=== PATIENT | male | born 1980 | race Caucasian/White ===

== ENCOUNTER 2019-02-27 14:43 | Emergency (ER) | payer SELFPAY ==
[2019-02-27] MEDS ORDERED: dexAMETHasone 10 MG/ML VIAL ONE (15:56)
[2019-02-27] MEDS ORDERED: KETOROLAC 30 MG/ML INJ ONE (15:57)
[2019-02-27] MEDS ORDERED: DIAZEPAM 10 MG/2 ML INJ SYRINGE ONE (15:57)
--- NOTE | 2019-02-27 16:30 | RAD REPORT ---
EXAM DESCRIPTION: CT - Spine Lumbar Wo Con - 02/27/2019 4:13 pm CLINICAL HISTORY: Back pain, right lower extremity radiculopathy COMPARISON: None. TECHNIQUE: Thin section axial imaging of the lumbar spine was performed. Sagittal and coronal recon struction images were generated and reviewed. All CT scans are performed using dose optimization technique as appropriate and may include automated exposure control or mA/KV adjustment according to patient size. FINDINGS: Lumbar bodies are normal in height and normal in alignment. No lytic, sclerotic or expansi le destructive process. No paraspinal soft tissue mass. Central canal detail is inherently limited. L1-2 level shows minimal disc bulge. No canal or foramen stenosis. Facet degenerative change present. L2-3 level shows mild broad-based bulging of disc material. No canal or foramen stenosis. Facet degen erative changes mild. L3-4 level shows mild circumferential bulging of disc material. No canal or foramen stenosis. Mild fa cet degenerative change. L4-5 level shows large broad-based protrusion of disc material across the central canal and into each exit foramen. The protruding disc is calcified. No central spinal stenosis. Mild bilateral foraminal stenosis changes are present from bulging disc material and facet degenerative change. L5-S1 large disc herniation. Disc herniation is calcified. There is no central spinal stenosis. Mild mass effect on the bilateral S1 nerve root seen. Foraminal stenosis is present from bulging disc mate rial and facet hypertrophy. IMPRESSION: L5-S1 large midline disc herniation. The disc is calcified indicating chronicity. No mac tral spinal stenosis. Prominent protruding disc in the midline with calcification also indicating long-standing. No central spinal stenosis. L4-5 and L5-S1 foraminal encroachment changes from disc bulge, endplate spurring and facet degenerati ve change.
[2019-02-27 16:33] LABS: Absolute Lymphocytes (CBC) 3.2 K/uL (0.7-4.9); Hematocrit 49.1 % (39.6-49.0); Lymphocytes % 27.4 % (15.3-44.8); RBC Red Blood Cell Count 5.62 M/uL (4.33-5.43)
[2019-02-27 16:45] LABS: ALT/SGPT 23 U/L (12-78); AST/SGOT 14 U/L (15-37); Albumin 3.6 g/dL (3.4-5.0); Alkaline Phosphatase 82 U/L (45-117); BUN Blood Urea Nitrogen 14 mg/dL (7-18); Bicarbonate 29 mmol/L (21-32); Bilirubin Direct 0.2 mg/dL (0-0.2); Bilirubin Total 0.9 mg/dL (0.2-1.0); Glucose Level 94 mg/dL (74-106); Potassium 3.8 mmol/L (3.5-5.1); Protein, Total 7.4 g/dL (6.4-8.2); Sodium Level 139 mmol/L (136-145)
[2019-02-27] MEDS ORDERED: FENTANYL CITR 100 MCG/2 ML ONE (17:11)
--- NOTE | 2019-02-27 18:03 | EDPHYS ---
Physician Documentation [facility] Name: Dar Frost Age: 38 yrs Sex: Male : 1980 Arrival Date: 02/27/2019 Time: 14:47 Bed 18 Private MD: ED Physician Jayant Javed HPI: 02/27 18:37 This 38 yrs old Male presents to ER via Wheelchair with complaints of Back wa Pain, Leg Pain. 18:38 The patient presents with pain that is acute, with no known mechanism of injury. The wa symptoms are located in the low back, right. Onset: The symptoms/episode began/occurred 3 day(s) ago. The pain radiates to the right leg. Associated signs and symptoms: Pertinent positives: numbness, tingling, Pertinent negatives: abdominal pain, dysuria, hematuria, urinary retention, weakness. The problem was sustained from unknown cause. Modifying factors: The patient symptoms are alleviated by nothing, the patient symptoms are aggravated by movement, walking. Severity of symptoms: At their worst the symptoms were severe, in the emergency department the symptoms are unchanged. The patient has not experienced similar symptoms in the past. The patient has not recently seen a physician. denies incontinence. denies inability ambulating. Historical: - Allergies: 14:51 No Known Allergies; hb - Home Meds: 14:51 losartan oral oral [Active]; hb - PMHx: 14:51 Hypertension; hb - PSHx: 14:51 None; hb - Immunization history:: Adult Immunizations up to date. - Social history:: Smoking status: Patient uses tobacco products, smokes one pack cigarettes per day. - Ebola Screening: : No symptoms or risks identified at this time. - Family history:: not pertinent. - Hospitalizations: : No recent hospitalization is reported. ROS: 18:40 Constitutional: Negative for fever, chills, and weight loss, Eyes: Negative for injury, wa pain, redness, and discharge, ENT: Negative for injury, pain, and discharge, Neck: Negative for injury, pain, and swelling, Cardiovascular: Negative for chest pain, palpitations, and edema, Respiratory: Negative for shortness of breath, cough, wheezing, and pleuritic chest pain, Abdomen/GI: Negative for abdominal pain, nausea, vomiting, diarrhea, and constipation, : Negative for injury, bleeding, discharge, and swelling, MS/Extremity: Negative for injury and deformity, Skin: Negative for injury, rash, and discoloration, Psych: Negative for depression, anxiety, suicide ideation, homicidal ideation, and hallucinations. 18:40 All other systems are negative. 18:41 Back: Positive for pain at rest, pain with movement, radiated pain, of the right low wa back and right gluteus marion. Exam: 18:41 Constitutional: This is a well developed, well nourished patient who is awake, alert, wa and in no acute distress. Head/Face: Normocephalic, atraumatic. Eyes: Pupils equal round and reactive to light, extra-ocular motions intact. Lids and lashes normal. Conjunctiva and sclera are non-icteric and not injected. Cornea within normal limits. Periorbital areas with no swelling, redness, or edema. ENT: Nares patent. No nasal discharge, no septal abnormalities noted. Tympanic membranes are normal and external auditory canals are clear. Oropharynx with no redness, swelling, or masses, exudates, or evidence of obstruction, uvula midline. Mucous membranes moist. Neck: Trachea midline, no thyromegaly or masses palpated, and no cervical lymphadenopathy. Supple, full range of motion without nuchal rigidity, or vertebral point tenderness. No Meningismus. Chest/axilla: Normal chest wall appearance and motion. Nontender with no deformity. No lesions are appreciated. Cardiovascular: Regular rate and rhythm with a normal S1 and S2. No gallops, murmurs, or rubs. Normal PMI, no JVD. No pulse deficits. Respiratory: Lungs have equal breath sounds bilaterally, clear to auscultation and percussion. No rales, rhonchi or wheezes noted. No increased work of breathing, no retractions or nasal flaring. Abdomen/GI: Soft, non-tender, with normal bowel sounds. No distension or tympany. No guarding or rebound. No evidence of tenderness throughout. Male : Normal genitalia with no discharge or lesions. Skin: Warm, dry with normal turgor. Normal color with no rashes, no lesions, and no evidence of cellulitis. MS/ Extremity: Pulses equal, no cyanosis. Neurovascular intact. Full, normal range of motion. 18:41 Back: pain, that is moderate, of the right low back and right gluteus marion, CVA tenderness, is absent, muscle spasm, is not present, Straight leg raises: partially positive on the R?. 18:41 Neuro: RLE numbness, tingling. Vital Signs: 14:51 BP 189 / 119; Pulse 98; Resp 20; Temp 97.9; Pulse Ox 100% on R/A; Weight 136.08 kg; hb Height 6 ft. 3 in. (190.50 cm); Pain 10/10; 16:40 BP 158 / 111; Pulse 65; Resp 17 S; Pulse Ox 95% on R/A; ca1 17:32 BP 145 / 91; Pulse 74; Resp 16 S; Pulse Ox 100% on R/A; ca1 18:10 BP 161 / 89; Pulse 81; Resp 17 S; Pulse Ox 100% on R/A; Pain 5/10; ca1 14:51 Body Mass Index 37.50 (136.08 kg, 190.50 cm) hb MDM: 14:55 Patient medically screened. wa 18:45 Differential diagnosis: Ligament Injury sprain, sciatica. lumbar canal stenosis, disk wa herniation, nerve root impingement. Data reviewed: vital signs, nurses notes, lab test result(s), radiologic studies. 18:47 Test interpretation: by ED physician or midlevel provider: lumbar spine CT: multi-level wa disk herniation. no significant canal stenosis. 18:49 Test interpretation: by ED physician or midlevel provider: labs noted essentially wa within nml limits. Response to treatment: the patient's symptoms have markedly improved after treatment. ED course: received meds for pain in ED with significant relief. d/c'd with close f/u for MRI and further eval. advised return for worsening concerns. 02/27 15:57 Order name: Basic Metabolic Panel; Complete Time: 17:08 dc 02/27 15:57 Order name: CBC with Diff; Complete Time: 17:09 dc 02/27 15:54 Order name: CT Lumbar Spine Wo Con; Complete Time: 17:09 dc 02/27 15:57 Order name: Hepatic Function; Complete Time: 17: dc 02/27 15:54 Order name: IV Start; Complete Time: 16:12 dc 02/27 15:57 Order name: Labs collected and sent; Complete Time: 16:23 wa Administered Medications: 16:00 Drug: Decadron - Dexamethasone 10 mg Route: IVP; Site: right antecubital; ca1 16:23 Follow up: Response: No adverse reaction; Pain is decreased ca1 16:02 Drug: TORadol 30 mg Route: IVP; Site: right antecubital; ca1 16:23 Follow up: Response: No adverse reaction; Pain is decreased ca1 16:05 Drug: Valium 5 mg Route: IVP; Site: right antecubital; ca1 16:23 Follow up: Response: No adverse reaction; Pain is decreased ca1 17:15 Drug: fentaNYL (PF) 100 mcg {Note: RASS - 0.} Route: IVP; Site: right antecubital; ca1 17:45 Follow up: Response: No adverse reaction; Pain is decreased; RASS: Alert and Calm (0) ca1 Disposition: 02/27/19 18:01 Discharged to Home. Impression: acute right lower back pain with radiculopathy. - Condition is Stable. - Prescriptions for Valium 5 mg Oral Tablet - take 1 tablet by ORAL route At bedtime As needed; 5 tablet. Prednisone 20 mg Oral Tablet - take 2 tablet by ORAL route once daily for 5 days; 10 tablet. Ibuprofen 600 mg Oral Tablet - take 1 tablet by ORAL route every 6 hours As needed take with food; 30 tablet. - Medication Reconciliation Form, Thank You Letter, Antibiotic Education, Prescription Opioid Use, Work release form form. - Follow up: Amadeo Nation MD; When: 1 - 2 days. - Problem is new. - Symptoms have improved. - Notes: follow up with the bone doctor as discussed. you will need an MRI for further evaluation of your pain. return for any rapidly worsening concerns you may have Signatures: Dispatcher [employer] EDJada Mejia RN RN Jayant Javed MD MD wa Acob, Cheryl, RN RN ca1 Corrections: (The following items were deleted from the chart) 18:19 18:01 02/27/2019 18:01 Discharged to Home. Impression: acute right lower back pain with ca1 radiculopathy. Condition is Stable. Forms are Medication Reconciliation Form, Thank You Letter, Antibiotic Education, Prescription Opioid Use. Follow up: Amadeo Nation; When: 1 - 2 days. Problem is new. Symptoms have improved. jay
--- NOTE | 2019-02-27 18:03 | ER ---
Nurse's Notes [facility] Name: Dar Frost Age: 38 yrs Sex: Male : 1980 Arrival Date: 02/27/2019 Time: 14:47 Bed 18 Private MD: Diagnosis: acute right lower back pain with radiculopathy Presentation: 02/27 14:48 Presenting complaint: Right low back pain that radiates to right leg x 3 days. hb Transition of care: patient was not received from another setting of care. Onset of symptoms was February 24, 2019. Risk Assessment: Do you want to hurt yourself or someone else? Patient reports no desire to harm self or others. Care prior to arrival: None. 14:48 Method Of Arrival: Wheelchair hb 14:48 Acuity: SAVANA 3 hb 15:21 Initial Sepsis Screen: Does the patient meet any 2 criteria? No. Patient's initial ca1 sepsis screen is negative. Does the patient have a suspected source of infection? No. Patient's initial sepsis screen is negative. Historical: - Allergies: 14:51 No Known Allergies; hb - Home Meds: 14:51 losartan oral oral [Active]; hb - PMHx: 14:51 Hypertension; hb - PSHx: 14:51 None; hb - Immunization history:: Adult Immunizations up to date. - Social history:: Smoking status: Patient uses tobacco products, smokes one pack cigarettes per day. - Ebola Screening: : No symptoms or risks identified at this time. - Family history:: not pertinent. - Hospitalizations: : No recent hospitalization is reported. Screenin:18 Abuse screen: Denies threats or abuse. Denies injuries from another. Nutritional ca1 screening: No deficits noted. Tuberculosis screening: No symptoms or risk factors identified. Fall Risk None identified. Assessment: 15:18 General: Appears in no apparent distress. uncomfortable, Behavior is calm, cooperative, ca1 appropriate for age. Pain: Complains of pain in right lower back and right gluteus marion Pain radiates to right leg Pain currently is 10 out of 10 on a pain scale. Quality of pain is described as sharp, shooting, Pain began 2-3 days ago. Is continuous, Aggravated by weight bearing. Neuro: Level of Consciousness is awake, alert, obeys commands, Oriented to person, place, time, situation, Appropriate for age. Cardiovascular: Heart tones S1 S2 present Capillary refill < 3 seconds Patient's skin is warm and dry. Cardiovascular: Pulses are all present. Cardiovascular: Edema is absent. Respiratory: Airway is patent Respiratory effort is even, unlabored, Respiratory pattern is regular, symmetrical. GI: Abdomen is round non-distended, Bowel sounds present X 4 quads. Abd is soft and non tender X 4 quads. : No deficits noted. No signs and/or symptoms were reported regarding the genitourinary system. EENT: No deficits noted. No signs and/or symptoms were reported regarding the EENT system. Derm: Skin is intact, is healthy with good turgor, Skin is pink, warm \T\ dry. Musculoskeletal: Circulation, motion, and sensation intact. Capillary refill < 3 seconds, Range of motion: intact in all extremities. 16:05 Reassessment: Patient appears in no apparent distress at this time. Patient and/or ca1 family updated on plan of care and expected duration. Pain level reassessed. Patient is alert, oriented x 3, equal unlabored respirations, skin warm/dry/pink. 17:20 Reassessment: Patient appears in no apparent distress at this time. Patient is alert, ca1 oriented x 3, equal unlabored respirations, skin warm/dry/pink. Pt c/o pain. Notified provider. Orders given. 17:53 Reassessment: Dr. Javed at bedside. ca1 18:10 Reassessment: Patient appears in no apparent distress at this time. Patient is alert, ca1 oriented x 3, equal unlabored respirations, skin warm/dry/pink. Patient states feeling better. Vital Signs: 14:51 BP 189 / 119; Pulse 98; Resp 20; Temp 97.9; Pulse Ox 100% on R/A; Weight 136.08 kg; hb Height 6 ft. 3 in. (190.50 cm); Pain 10/10; 16:40 BP 158 / 111; Pulse 65; Resp 17 S; Pulse Ox 95% on R/A; ca1 17:32 BP 145 / 91; Pulse 74; Resp 16 S; Pulse Ox 100% on R/A; ca1 18:10 BP 161 / 89; Pulse 81; Resp 17 S; Pulse Ox 100% on R/A; Pain 5/10; ca1 14:51 Body Mass Index 37.50 (136.08 kg, 190.50 cm) ED Course: 14:47 Patient arrived in ED. mr 14:50 Triage completed. hb 14:51 Arm band placed on. hb 14:54 Ana Maria Huang RN is Primary Nurse. ca1 14:55 Jayant Javed MD is Attending Physician. ms 15:18 Patient has correct armband on for positive identification. Bed in low position. Call ca1 light in reach. Side rails up X 1. Pulse ox on. NIBP on. Warm blanket given. 15:18 No provider procedures requiring assistance completed. ca1 16:00 Inserted saline lock: 20 gauge in right antecubital area, using aseptic technique. ca1 16:14 CT Lumbar Spine Wo Con In Process Unspecified. EDGA 18:01 Amadeo Nation MD is Referral Physician. ms 18:18 IV discontinued, intact, bleeding controlled, No redness/swelling at site. Pressure ca1 dressing applied. Administered Medications: 16:00 Drug: Decadron - Dexamethasone 10 mg Route: IVP; Site: right antecubital; ca1 16:23 Follow up: Response: No adverse reaction; Pain is decreased ca1 16:02 Drug: TORadol 30 mg Route: IVP; Site: right antecubital; ca1 16:23 Follow up: Response: No adverse reaction; Pain is decreased ca1 16:05 Drug: Valium 5 mg Route: IVP; Site: right antecubital; ca1 16:23 Follow up: Response: No adverse reaction; Pain is decreased ca1 17:15 Drug: fentaNYL (PF) 100 mcg {Note: RASS - 0.} Route: IVP; Site: right antecubital; ca1 17:45 Follow up: Response: No adverse reaction; Pain is decreased; RASS: Alert and Calm (0) ca1 Outcome: 18:01 Discharge ordered by . wa 18:18 Discharged to home via wheelchair, with family. ca1 18:18 Condition: stable 18:18 Discharge instructions given to patient, Instructed on discharge instructions, follow up and referral plans. no drinking with medication, no driving heavy equipment, medication usage, Demonstrated understanding of instructions, follow-up care, medications, Prescriptions given X 3. 18:19 Patient left the ED. ca1 Signatures: Dispatcher [employer] [facility] Carmenza Frausto Heather, RN RN Tello, MD MD jay Saba Cheryl RN RN ca1 Corrections: (The following items were deleted from the chart) 18:18 18:10 BP 161 / 89; Pulse 81bpm; Resp 17bpm; Spontaneous; Pulse Ox 100% RA; Pain 6/10; ca1 ca1
[2019-02-27 19:31] VITALS: TEMP 97.9
[2019-02-27 19:33] VITALS: O2SAT 100
[2019-02-27 19:35] VITALS: BP 161/89
== END 2019-02-27 18:19 | disposition home or self-care (01) ==
LOC: ER 14:43
DX: M54.16 Radiculopathy, lumbar region (principal); I10 Essential (primary) hypertension; F17.210 Nicotine dependence, cigarettes, uncomplicated
CPT/HCPCS: 36415; 72131; 80048; 80076; 85025; 96374; 96375; 99284; J1100; J3010; J3360

== ENCOUNTER 2019-03-01 10:31 | Emergency (ER) | payer SELFPAY ==
[2019-03-01] MEDS ORDERED: dexAMETHasone 10 MG/ML VIAL ONE (12:05)
[2019-03-01] MEDS ORDERED: KETOROLAC 30 MG/ML INJ ONE (12:06)
[2019-03-01] MEDS ORDERED: FENTANYL CITR 100 MCG/2 ML ONE ×2 (12:06→14:39)
[2019-03-01] MEDS ORDERED: METHOCARBAMOL 1,000 MG in NA CHLORIDE 0.9% 100 ML IV ONE (13:00)
[2019-03-01] MEDS ORDERED: GABAPENTIN 300 MG CAP ONE (14:39)
--- NOTE | 2019-03-01 15:42 | ER ---
Nurse's Notes [facility] Name: Dar Frost Age: 38 yrs Sex: Male : 1980 Arrival Date: 03/01/2019 Time: 10:40 Bed 8 Private MD: Diagnosis: Lumbago with sciatica, right side Presentation: 03/01 10:57 Presenting complaint: Patient states: right buttock pain that radiates down to the RLE, sv reports being seen here 2 days ago for the same thing, denies injury or fall. Reports that he went to the restroom and sat down and when he sat back up the pain started again. Denies urinary problems. Transition of care: patient was not received from another setting of care. Onset of symptoms was March 01, 2019. Risk Assessment: Do you want to hurt yourself or someone else? Patient reports no desire to harm self or others. Care prior to arrival: None. 10:57 Method Of Arrival: Wheelchair sv 10:57 Acuity: SAVANA 3 sv 16:00 Initial Sepsis Screen: Does the patient meet any 2 criteria? No. Patient's initial bp sepsis screen is negative. Does the patient have a suspected source of infection? No. Patient's initial sepsis screen is negative. Triage Assessment: 10:57 General: Appears in no apparent distress. uncomfortable, obese, Behavior is sv cooperative, restless. Pain: Complains of pain in right gluteus marion Pain radiates to right leg. Neuro: Level of Consciousness is awake, alert, obeys commands. Respiratory: Respiratory effort is even, unlabored. Historical: - Allergies: 10:59 No Known Allergies; sv - PMHx: 10:59 Hypertension; sv - PSHx: 10:59 None; sv - Immunization history:: Adult Immunizations up to date. - Social history:: Smoking status: Patient/guardian denies using tobacco. - Ebola Screening: : No symptoms or risks identified at this time. Screenin:55 Abuse screen: Denies threats or abuse. Denies injuries from another. Nutritional aj1 screening: No deficits noted. Tuberculosis screening: No symptoms or risk factors identified. 16:00 Fall Risk None identified. bp Assessment: 11:55 General: Appears uncomfortable, Behavior is cooperative, agitated, restless. Pain: aj1 Complains of pain in right gluteus marion Pain radiates to right leg Pain currently is 10 out of 10 on a pain scale. Neuro: Level of Consciousness is awake, alert, obeys commands, Oriented to person, place, time, situation. Cardiovascular: Patient's skin is warm and dry. Respiratory: Airway is patent Respiratory effort is even, unlabored, Respiratory pattern is regular, symmetrical. GI: No signs and/or symptoms were reported involving the gastrointestinal system. : No signs and/or symptoms were reported regarding the genitourinary system. EENT: No signs and/or symptoms were reported regarding the EENT system. Derm: No signs and/or symptoms reported regarding the dermatologic system. Skin is pink, warm \T\ dry. normal. Musculoskeletal: Circulation, motion, and sensation intact. Range of motion: intact in all extremities, Denies recent injury. 12:55 Reassessment: Patient and/or family updated on plan of care and expected duration. Pain aj1 level reassessed. Patient is resting comfortably, awakens easily to tactile stimuli. Patient states feeling better. Patient states symptoms have improved. 13:55 Reassessment: Patient and/or family updated on plan of care and expected duration. Pain aj1 level reassessed. General: Appears in no apparent distress. comfortable, Behavior is calm, cooperative, appropriate for age. Neuro: Level of Consciousness is awake, alert, obeys commands, Oriented to person, place, time, situation. Cardiovascular: Patient's skin is warm and dry. Respiratory: Airway is patent Respiratory effort is even, unlabored, Respiratory pattern is regular, symmetrical. Derm: No signs and/or symptoms reported regarding the dermatologic system. Skin is pink, warm \T\ dry. normal. Musculoskeletal: Circulation, motion, and sensation intact. 15:01 Reassessment: Patient appears in no apparent distress at this time. No changes from aj1 previously documented assessment. Patient and/or family updated on plan of care and expected duration. Pain level reassessed. Patient is alert, oriented x 3, equal unlabored respirations, skin warm/dry/pink. 15:59 Reassessment: PT D/C HOME VIA W/C, DX WITH LUMBAGO. bp Vital Signs: 10:59 BP 164 / 128; Pulse 89; Resp 24; Temp 97; Pulse Ox 98% ; Weight 136.08 kg; Height 6 ft. sv 3 in. (190.50 cm); 11:55 BP 140 / 121; Pulse 77; Resp 18; Pulse Ox 97% on R/A; aj1 13:27 BP 171 / 94; Pulse 53; Resp 16 S; Pulse Ox 96% ; aj1 14:30 BP 171 / 105; Pulse 64; Resp 18; Pulse Ox 100% on R/A; aj1 10:59 Body Mass Index 37.50 (136.08 kg, 190.50 cm) sv ED Course: 10:40 Patient arrived in ED. as 10:58 Triage completed. sv 10:59 Arm band placed on. sv 11:52 Rai Hamilton PA is PHCP. jr8 11:52 Leander Workman MD is Attending Physician. jr8 11:55 Destinee Rivera RN is Primary Nurse. aj1 11:55 Patient has correct armband on for positive identification. Bed in low position. Call aj1 light in reach. Side rails up X 1. 11:55 No provider procedures requiring assistance completed. aj1 12:00 Inserted saline lock: 20 gauge in right antecubital area, using aseptic technique. aj1 15:59 IV discontinued, intact, bleeding controlled, No redness/swelling at site. Pressure bp dressing applied. Administered Medications: 12:01 Not Given (Physician Discretion): Valium 2 mg IVP once jr8 12:11 Drug: TORadol - Ketorolac 15 mg Route: IVP; Site: right antecubital; aj1 16:01 Follow up: Response: Pain is decreased bp 12:11 Drug: Decadron - Dexamethasone 10 mg Route: IVP; Site: right antecubital; aj1 16:01 Follow up: Response: No adverse reaction bp 12:11 Drug: fentaNYL (PF) 100 mcg Route: IVP; Site: right antecubital; aj1 16:01 Follow up: Response: Pain is decreased bp 12:22 Drug: Robaxin 1 grams Route: IVPB; Infused Over: 1 hrs; Site: right antecubital; aj1 13:00 Follow up: IV Status: Completed infusion; IV Intake: 50ml bp 14:42 Drug: fentaNYL (PF) 100 mcg {Note: RASS score 0 patient is alert.} Route: IVP; Site: aj1 right antecubital; 16:01 Follow up: Response: Pain is decreased bp 14:43 Drug: Gabapentin 600 mg Route: PO; aj1 16:02 Follow up: Response: No adverse reaction bp Intake: 13:00 IV: 50ml; Total: 50ml. bp Outcome: 15:39 Discharge ordered by MD. brewer 15:59 Discharged to home via wheelchair. bp 15:59 Condition: stable 15:59 Discharge instructions given to patient, Instructed on discharge instructions, follow up and referral plans. medication usage, Demonstrated understanding of instructions, follow-up care, medications, Prescriptions given X 1. 16:02 Patient left the ED. sv Signatures: Destinee Rivera RN RN aj1 Claire Sarabia RN RN sv Sharee Avila Josh, PA PA jr8 Kaz Krishna RN RN bp Corrections: (The following items were deleted from the chart) 10:59 10:57 Acuity: SAVANA 4 sv sv 11:00 10:57 Acuity: SAVANA 2 sv sv
--- NOTE | 2019-03-01 15:43 | EDPHYS ---
Physician Documentation [facility] Name: Dar Frost Age: 38 yrs Sex: Male : 1980 Arrival Date: 03/01/2019 Time: 10:40 Bed 8 Private MD: ED Physician Leander Workman HPI: 03/01 13:11 This 38 yrs old Male presents to ER via Wheelchair with complaints of jr8 Sciatica. 13:11 The patient presents with pain that is acute. The symptoms are located in the low back. jr8 The pain radiates to the right leg. The problem was sustained standing up. Onset: The symptoms/episode began/occurred acutely, today. Modifying factors: The patient symptoms are alleviated by nothing, the patient symptoms are aggravated by any movement. Associated signs and symptoms: The patient has no apparent associated signs or symptoms. Severity of symptoms: At their worst the symptoms were moderate, in the emergency department the symptoms are unchanged. The patient has experienced similar episodes in the past, a few times. The patient has been recently seen at the [facility], this week, for similar complaints labs were performed, CT scan was performed, was given a prescription for pain medications, the patient was told to return for a recheck. Stated that he pulled his back and started to have radiating pain a few days ago. Came here and felt better. Today was getting off of the toilet and pulled back again. Pain since then that will not go away . Historical: - Allergies: 10:59 No Known Allergies; sv - PMHx: 10:59 Hypertension; sv - PSHx: 10:59 None; sv - Immunization history:: Adult Immunizations up to date. - Social history:: Smoking status: Patient/guardian denies using tobacco. - Ebola Screening: : No symptoms or risks identified at this time. ROS: 13:11 Eyes: Negative for injury, pain, redness, and discharge, ENT: Negative for injury, jr8 pain, and discharge, Neck: Negative for injury, pain, and swelling, Cardiovascular: Negative for chest pain, palpitations, and edema, Respiratory: Negative for shortness of breath, cough, wheezing, and pleuritic chest pain, Abdomen/GI: Negative for abdominal pain, nausea, vomiting, diarrhea, and constipation, MS/Extremity: Negative for injury and deformity, Skin: Negative for injury, rash, and discoloration, Neuro: Negative for headache, weakness, numbness, tingling, and seizure. 13:11 Back: Positive for pain at rest, pain with movement, radiated pain, of the right low back. Exam: 13:11 Cardiovascular: Regular rate and rhythm with a normal S1 and S2. No gallops, murmurs, jr8 or rubs. Normal PMI, no JVD. No pulse deficits. Respiratory: Lungs have equal breath sounds bilaterally, clear to auscultation and percussion. No rales, rhonchi or wheezes noted. No increased work of breathing, no retractions or nasal flaring. Abdomen/GI: Soft, non-tender, with normal bowel sounds. No distension or tympany. No guarding or rebound. No evidence of tenderness throughout. Skin: Warm, dry with normal turgor. Normal color with no rashes, no lesions, and no evidence of cellulitis. MS/ Extremity: Pulses equal, no cyanosis. Neurovascular intact. Full, normal range of motion. Neuro: Awake and alert, GCS 15, oriented to person, place, time, and situation. Cranial nerves II-XII grossly intact. Motor strength 5/5 in all extremities. Sensory grossly intact. Cerebellar exam normal. Normal gait. 13:11 Back: pain, that is moderate, of the right low back, ROM is painful, normal spinal alignment noted, CVA tenderness, is absent, Straight leg raises: right lower extremity illicits pain, at 15 degrees. Vital Signs: 10:59 BP 164 / 128; Pulse 89; Resp 24; Temp 97; Pulse Ox 98% ; Weight 136.08 kg; Height 6 ft. sv 3 in. (190.50 cm); 11:55 BP 140 / 121; Pulse 77; Resp 18; Pulse Ox 97% on R/A; aj1 13:27 BP 171 / 94; Pulse 53; Resp 16 S; Pulse Ox 96% ; aj1 14:30 BP 171 / 105; Pulse 64; Resp 18; Pulse Ox 100% on R/A; aj1 10:59 Body Mass Index 37.50 (136.08 kg, 190.50 cm) sv MDM: 11:57 Patient medically screened. jr8 15:38 Data reviewed: vital signs, nurses notes, and as a result, I will discharge patient. jr8 Data interpreted: Pulse oximetry: on room air is 100 %. Interpretation: normal. Counseling: I had a detailed discussion with the patient and/or guardian regarding: the historical points, exam findings, and any diagnostic results supporting the discharge/admit diagnosis, the need for outpatient follow up, a neurosurgeon, a orthopedic surgeon, to return to the emergency department if symptoms worsen or persist or if there are any questions or concerns that arise at home. Response to treatment: the patient's symptoms have markedly improved after treatment. 03/01 11:56 Order name: IV; Complete Time: :8 Administered Medications: 12: Not Given (Physician Discretion): Valium 2 mg IVP once jr8 12:11 Drug: TORadol - Ketorolac 15 mg Route: IVP; Site: right antecubital; [facility] 16:01 Follow up: Response: Pain is decreased bp 12:11 Drug: Decadron - Dexamethasone 10 mg Route: IVP; Site: right antecubital; [facility] 16:01 Follow up: Response: No adverse reaction bp 12:11 Drug: fentaNYL (PF) 100 mcg Route: IVP; Site: right antecubital; aj 16:01 Follow up: Response: Pain is decreased bp 12:22 Drug: Robaxin 1 grams Route: IVPB; Infused Over: 1 hrs; Site: right antecubital; aj 13:00 Follow up: IV Status: Completed infusion; IV Intake: 50ml bp 14:42 Drug: fentaNYL (PF) 100 mcg {Note: RASS score 0 patient is alert.} Route: IVP; Site: [facility] right antecubital; 16:01 Follow up: Response: Pain is decreased bp 14:43 Drug: Gabapentin 600 mg Route: PO; [facility] 16:02 Follow up: Response: No adverse reaction bp Disposition: 03/02 07:29 Co-signature as Attending Physician, Leander Workman MD I agree with the assessment and kdr plan of care. Disposition: 03/01/19 15:39 Discharged to Home. Impression: Lumbago with sciatica, right side. - Condition is Stable. - Discharge Instructions: Chronic Back Pain, Sciatica, Back Exercises, [id number]. - Prescriptions for gabapentin 300 mg Oral capsule - take 1 capsule by ORAL route 3 times per day; 30 capsule. - Medication Reconciliation Form, Thank You Letter, Antibiotic Education, Prescription Opioid Use, Work release form form. - Follow up: Private Physician; When: 1 week; Reason: Recheck today's complaints, Continuance of care, Re-evaluation by your physician. - Problem is new. - Symptoms have improved. Signatures: Destinee Rivera RN RN aj1 Claire Sarabia RN RN sv Leander Workman MD MD [facility] Rai Hamilton PA PA jr8 Kaz Krishna RN RN bp Corrections: (The following items were deleted from the chart) 03/01 16:02 15:39 03/01/2019 15:39 Discharged to Home. Impression: Lumbago with sciatica, right sv side. Condition is Stable. Forms are Medication Reconciliation Form, Thank You Letter, Antibiotic Education, Prescription Opioid Use. Follow up: Private Physician; When: 1 week; Reason: Recheck today's complaints, Continuance of care, Re-evaluation by your physician. Problem is new. Symptoms have improved. jr8
[2019-03-01 17:41] VITALS: TEMP 97
[2019-03-01 17:52] VITALS: BP 171/105; O2SAT 100
== END 2019-03-01 16:02 | disposition home or self-care (01) ==
LOC: ER 10:31
DX: M54.41 Lumbago with sciatica, right side (principal)
CPT/HCPCS: 96365; 96375; 99283; J1100; J2800; J3010